=== PATIENT | female | born 1940 | race Caucasian/White ===

== ENCOUNTER 2020-09-16 16:40 | Emergency (ER) | payer MEDICARE ==
[~2020-09-16] VITALS: Ht 172.7 cm; Wt 79.4 kg
[2020-09-16] MEDS ORDERED: HYDROCODONE/APAP 7.5MG-325MG 1 EA TAB PO NR (17:45)
[2020-09-16] MEDS ORDERED: HYDROCODON-ACE1 EA12 PO (18:21)
[2020-09-16] MEDS ORDERED: TYLENOL # 31 EA PO (18:28)
== END 2020-09-16 19:05 | disposition home or self-care (01) ==
LOC: ER 17:07
DX: S52.512A Displaced fracture of left radial styloid process, initial encounter for closed fracture (principal); S00.93XA Contusion of unspecified part of head, initial encounter; M81.0 Age-related osteoporosis without current pathological fracture; I10 Essential (primary) hypertension; E11.9 Type 2 diabetes mellitus without complications; E03.9 Hypothyroidism, unspecified; W01.198A Fall on same level from slipping, tripping and stumbling with subsequent striking against other object, initial encounter; Y92.015 Private garage of single-family (private) house as the place of occurrence of the external cause
CPT/HCPCS: 70450; 72125; 99284